=== PATIENT | female | born 1980 | race Caucasian/White ===

== ENCOUNTER 2016-12-11 15:47 | Emergency (ER) | payer OTHER ==
[~2016-12-11] VITALS: Ht 172.7 cm; Wt 79.4 kg
[~2016-12-11 15:47] MED LIST: AMOXICILLIN500 M3 PO; AMOXIL500 MG PO; BACTRIM DS 8001 TAB PO; BACTRIM DS TAB1 EACH PO; CIPRO500 M1 PO; FLEXERIL10 MG PO; K-DUR 20MEQ TA20 MEQ PO; LEVOXYL75 MCG PO; LINZESS145 MCG PO; NORCO 325 MG-51 TAB PO; NORCO 5-325 TA1 EACH PO; OMEPRAZOLE40 MG PO; OXYCODONE5 MG PO; PEPCID20 M1 PO; PERCOCET 10-321 EACH PO; PERCOCET 325 MG1 TA2 PO; PERCOCET 5-3251 EACH PO; PREMARIN 1.251.25 MG PO; PREMARIN0.3 M1 PO; QUETIAPINE FUM200 M1 PO; ROXICODONE30 MG PO; SOMA 350MG TAB350 MG PO; TRAMADOL50 MG PO; VITAMIN D2000 UNIT PO; XANAX2 M1 PO; ZOFRAN ODT4 M1 PO; ZOFRAN ODT4 M1 SL; ZOFRAN4 M2 PO
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
[2016-12-11 16:57] LABS: ABSOLUTE BASOPHIL COUNT 0.1 /CUMM (0.0-0.2); ABSOLUTE EOSINOPHIL COUNT 0.1 /CUMM (0.0-0.7); ABSOLUTE GRANULOCYTE CT 6.2 /CUMM (1.4-6.5); ABSOLUTE LYMPH COUNT 4.1 /CUMM (1.2-3.4); ABSOLUTE MONOCYTE COUNT 0.6 /CUMM (0.10-0.60); BASOPHIL % 0.9 % (0.0-2.0); EOSINOPHIL % 0.9 % (0-5); HEMATOCRIT 45.4 % (37-47); MEAN CORPUSCULAR HGB 30.5 PG (27.0-31.0); MEAN CORPUSCULAR HGB CONC 33.5 G/DL (33.0-37.0); MEAN PLATELET VOLUME 8.6 FL (7.4-10.4); PLATELET COUNT 345 /CUMM (130-400); RBC DISTRIBUTION WIDTH 13.2 % (11.5-14.5); RED BLOOD CELL CT 4.99 /CUMM (4.20-5.40)
[2016-12-11] MEDS ORDERED: PERCOCET 5-3251 EACH PO (17:08)
[2016-12-11 17:12] VITALS: BP 124/74
--- NOTE | 2016-12-11 17:28 | RADIOLOGY REPORT ---
EXAMINATION: XR CHEST CLINICAL INFORMATION: Chest pain. COMPARISON: Chest x-ray 06/20/2016 TECHNIQUE: PA and lateral views of the chest were obtained. FINDINGS: No significant abnormality is noted involving the heart, lungs, mediastinum, bony thorax, or soft tissues. IMPRESSION: No acute abnormality of the chest.
== END 2016-12-11 17:13 ==
LOC: ERH 15:47
PROVIDERS: Physician Assistant
DX: R07.9 Chest pain, unspecified (principal)
CPT/HCPCS: 93005; 93010; G0480

== ENCOUNTER 2016-12-14 11:20 | Emergency (ER) | payer OTHER ==
[~2016-12-14] VITALS: Ht 170.2 cm; Wt 77.1 kg
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
--- NOTE | 2016-12-14 13:55 | RADIOLOGY REPORT ---
EXAMINATION: XR CHEST CLINICAL INFORMATION: Chest pain COMPARISON: Chest x-rays most recent prior 12/13/2016 TECHNIQUE: PA and lateral views of the chest were obtained. FINDINGS: Cardiomediastinal silhouette is within normal limits. Linear. Bony thorax is intact. IMPRESSION: No acute pulmonary disease.
[2016-12-14 14:00] VITALS: BP 122/70
[2016-12-14] MEDS ORDERED: PERCOCET 5-3251 EACH PO (14:21)
== END 2016-12-14 14:25 ==
LOC: ERH 11:20
DX: R07.89 Other chest pain (principal)
CPT/HCPCS: 93005; 93010

== ENCOUNTER 2017-01-15 15:40 | Emergency (ER) | payer OTHER ==
[~2017-01-15] VITALS: Ht 167.6 cm; Wt 78.0 kg
[2017-01-15 15:55] VITALS: BP 138/92
[2017-01-15] MEDS ORDERED: ALPRAZOLAM2 M2 PO (18:27)
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
[2017-01-15] MEDS ORDERED: SOMA250 M1 PO (18:39)
== END 2017-01-15 19:18 ==
LOC: ERH 15:40
DX: T22.112A Burn of first degree of left forearm, initial encounter (principal); G43.909 Migraine, unspecified, not intractable, without status migrainosus; X15.0XXA Contact with hot stove (kitchen), initial encounter
CPT/HCPCS: 96372

== ENCOUNTER 2017-01-29 09:58 | Emergency (ER) | payer OTHER ==
[~2017-01-29] VITALS: Ht 167.6 cm; Wt 78.0 kg
[~2017-01-29 09:58] MED LIST changes: +ALPRAZOLAM2 M2 PO; +SOMA250 M1 PO
[2017-01-29 10:04] VITALS: BP 115/71
--- NOTE | 2017-01-29 11:20 | ED ANKLE/FOOT INJURY COMPLAINT ---
History of Present Illness General Chief Complaint: Foot or Ankle Injury Stated Complaint: BIBA RIGHT FOOT PAIN Source: patient, old records Exam Limitations: no limitations Vital Signs & Intake/Output Vital Signs & Intake/Output Vital Signs Date Time Temp Pulse Resp B/P Pulse O2 O2 Flow FiO2 Ox Delivery Rate 01/29 1004 98.5 101 18 115/71 99 Room Air Allergies Coded Allergies: NSAIDS (Non-Steroidal Anti-Inflamma (HIVES 01/15/17) aspirin (HIVES 01/15/17) erythromycin base (HIVES 01/15/17) metoclopramide (HEADACHES 01/15/17) mirtazapine (From REMERON) (HEADACHES 01/15/17) paroxetine (HIVES 01/15/17) sertraline (HIVES 01/15/17) sumatriptan (From IMITREX) (ITCHY AND FOGGY 01/15/17) venom-honey bee (BEE VENOM (HONEY BEE)) (ANAPHYLAXIS 01/15/17) cyclobenzaprine (From FLEXERIL) (GROGGY 01/15/17) divalproex sodium (PERSONALITY CHANGE 01/15/17) gabapentin ("DOESN'T WORK" 01/15/17) Reconcile Medications Alprazolam 2 MG TABLET 1 TAB PO 4 TIMES/DAY PRN ANXIETY (Reported) Amoxicillin 500 MG TABLET 1 TAB PO TID celluitis Carisoprodol (SOMA) 250 MG TABLET 1 TAB PO BID PRN Cholecalciferol (Vitamin D3) (Vitamin D) (Unknown Strength) CAPSULE (Unknown Dose) PO DAILY SUPPLEMENT (Reported) Estrogens, Conjugated (Premarin) 0.3 MG TABLET 0.3 MG PO DAILY HYSTERECTOMY ( Reported) Levothyroxine Sodium (Levoxyl) 75 MCG TABLET 1 TAB PO DAILY THYROID (Reported ) Oxycodone HCl/Acetaminophen (Percocet 5-325 MG Tablet) 5 MG-325 MG TABLET 1 TAB PO BID PRN pain Quetiapine Fumarate 200 MG TABLET 2 TAB PO QPM MENTAL HEALTH/SLEEP (Reported) Sulfamethoxazole/Trimethoprim (Bactrim Ds Tablet) 800 MG-160 MG TABLET 1 TAB PO BID cellulitis Triage Note: 37 Y/O FEMALE BIBKiah (TO TRIAGE) C/O PAIN/SWELLING AND BLISTERS TO R FOOT X 3 DAYS. STATES SHE TOOK TYLENOL WITH NO RELIEF. SMALL BLISTER NOTED TO OUTER ASPECT OF FOOT. AFEBRILE. Triage Nurses Notes Reviewed? yes Duration: day(s): (3), constant Timing: recent history Severity: moderate Severity Numbers: 5 Pain/Injury Location: Right: Foot. Method of Injury: unknown No Modifying Factors: none Associated Symptoms: swelling, redness : No Patient currently breastfeeds: No HPI: 37-year-old female presents to the emergency room for evaluation complaining of mild to moderate aching constant pain sudden onset that she's had for the past 3 days associated with swelling to her foot and redness to her foot. She denies any known injury or trauma however states that she first noticed 2 small blisters to the medial aspect of her foot. She states the larger blister popped yesterday and since then she has had the swelling and redness near the site of the popped blister. She denies any fevers or chills. She states she has a history of similar presentation to her right hand several months ago that was treated successfully with antibiotics. No chest pain shortness of breath she denies any swelling to the rest her leg, no calf pain there are no modifying factors or associated symptoms otherwise pain is nonradiating she took Tylenol without improvement (LISSY IVERSON) Past History Travel History Traveled to [place] past 21 day No Medical History Any Pertinent Medical History? 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 No (LISSY IVERSON) Review of Systems Review of Systems Constitutional: Reports: see HPI. All Other Systems: Reviewed and Negative Comments Review of systems: See HPI, All other systems negative. Constitutional, no chills no fever, no malaise HEENT: No visual changes no sore throat no congestion, no ear pain Cardiovascular: No chest pain , no palpitation , Skin, see HPI Respiratory: No dyspnea no cough no sputum GI: No nausea no vomiting, no diarrhea, no bloating/constipation : No dysuria No hematuria, Muscle skeletal: No joint pain, no joint swelling, no back pain, no neck pain, Neurologic: No numbness no headache Psych: No stress Heme/endocrine: No bruising no bleeding Immunology: No lymphadenopathy (LISSY IVERSON) Physical Exam Physical Exam General Appearance: well developed/nourished, no apparent distress, alert, awake , comfortable Leg/Knee/Thigh Left: normal range of motion, normal inspection Comments: Well-developed well-nourished patient in no apparent distress. HEENT: Atraumatic, extraocular motion intact Neck: Supple, FROM, no lymphadenopathy Back: FROM, Nontender Cardiovascular: Regular rate and rhythms no murmurs rubs or gallops, Respiratory: Chest nontender.There were no bony deformities, no asymmetry. No respiratory distress. Patient speaking in full complete sentences. Breath sounds clear to auscultation bilaterally: NO W/R/R Hip/Pelvis: Atraumatic/Stable. FROM. Knee: Atraumatic/stable. FROM. No joint swelling, no effusion. No laxity. No pain with ROM Leg: Atraumatic. Nontender. No edema, 5 out of 5 strength in the lower extremity, normal dorsiflexion of great toe bilaterally, gross sensation is intact, . Ankle/Foot: There is a 2 x 1 cm superficial skin abrasion noted to the medial aspect of the right first metatarsal, and a small 1 x 1 cm blister still intact, there is +1+ edema to the right dorsal foot the plantar surface is atraumatic nontender full sensation noted distal toes, mild erythema and streaking at the site of the blisters rest the foot is atraumatic nontender, the ankle is nontender with FROM. No swelling to the ankle, no laxity on exam Pulses: Normal/equal DP/PT pulses bilaterally. Brisk cap refill Upper Extremities: full range of motion Neuro: Alert and oriented x3 Skin: Warm & dry;No appreciable rash on exposed skin Psych: Mood affect normal, normal memory normal judgment. (LISSY IVERSON) Progress Differential Diagnosis: fracture, dislocation, sprain, contusion, cellulitis abscess Plan of Care: Discussed with patient plan of care prescription for antibiotics pain medicine was called into her pharmacy, she is ambulatory with steady gait advised to keep foot elevated the rest of the leg is atraumatic nontender with no swelling I do not believe she requires a ultrasound or blood work at this time as she is afebrile nontoxic appearing answered all her questions she feels comfortable this plan (LISSY IVERSON) Departure Departure Time of Disposition: 1130 Disposition: HOME OR SELF CARE Condition: Stable Clinical Impression Primary Impression: Cellulitis Referrals: PATIENT HAS NO PRIMARY CARE DR (PCP/Family) Additional Instructions: amoxicillin and bactrim as directed, percocet for breakthrough pain- this will make you drowsy, no driving or drinking alcohol while taking. follow up with your pmd on wednesday these prescriptions were sent to your [place] [facility] Departure Forms: Customer Survey General Discharge Information Prescriptions: Current Visit Scripts Amoxicillin 1 TAB PO TID #21 TAB Sulfamethoxazole/Trimethoprim (Bactrim Ds Tablet) 1 TAB PO BID #14 TAB Oxycodone HCl/Acetaminophen (Percocet 5-325 MG Tablet) 1 TAB PO BID PRN pain #10 TAB (LISSY IVERSON) PA/PEGGER DOBBY LOOMS Co-Sign Statement Statement: ED Attending supervision documentation- [] I saw and evaluated the patient. I have also reviewed all the pertinent lab results and diagnostic results. I agree with the findings and the plan of care as documented in the PA's/PEGGER DOBBY LOOMS's documentation. [X] I have reviewed the ED Record and agree with the PA's/PEGGER DOBBY LOOMS's documentation. [] Additions or exceptions (if any) to the PAs/PEGGER DOBBY LOOMS's note and plan are summarized below: [] (FARIDEH DELGADO,SHELBI)
[2017-01-29] MEDS ORDERED: BACTRIM DS TAB1 EACH PO (11:34)
[2017-01-29] MEDS ORDERED: PERCOCET 5-3251 EACH PO (11:34)
[2017-01-29] MEDS ORDERED: AMOXICILLIN500 M3 PO (11:34)
== END 2017-01-29 11:31 ==
LOC: ERH 09:58
DX: L03.115 Cellulitis of right lower limb (principal)

== ENCOUNTER 2017-04-04 09:28 | Emergency (ER) | payer OTHER ==
[2017-04-04 10:50] LABS: ABSOLUTE BASOPHIL COUNT 0 /CUMM (0.0-0.2); ABSOLUTE EOSINOPHIL COUNT 0.1 /CUMM (0.0-0.7); ABSOLUTE GRANULOCYTE CT 3.2 /CUMM (1.4-6.5); ABSOLUTE LYMPH COUNT 2.8 /CUMM (1.2-3.4); ABSOLUTE MONOCYTE COUNT 0.2 /CUMM (0.10-0.60); BASOPHIL % 0.7 % (0.0-2.0); EOSINOPHIL % 1.8 % (0-5); GRANULOCYTE % 49.6 % (42.2-75.2); HEMATOCRIT 43.2 % (37-47); MEAN CORPUSCULAR HGB 30.1 PG (27.0-31.0); MEAN CORPUSCULAR HGB CONC 33.1 G/DL (33.0-37.0); MEAN CORPUSCULAR VOLUME 91.2 FL (81.0-99.0); MEAN PLATELET VOLUME 9.1 FL (7.4-10.4); PLATELET COUNT 311 /CUMM (130-400); RBC DISTRIBUTION WIDTH 13.1 % (11.5-14.5); RED BLOOD CELL CT 4.74 /CUMM (4.20-5.40); WHITE BLOOD CELL COUNT 6.4 /CUMM (4.8-10.8)
--- NOTE | 2017-04-04 13:05 | CT SCAN REPORT ---
EXAMINATION: CT ABDOMEN AND PELVIS WITH CONTRAST CLINICAL INFORMATION: Abdominal pain. Nausea, vomiting and diarrhea. COMPARISON: CT scan of the lumbar spine dated 09/24/2016. CT scan of the abdomen and pelvis dated 05/22/2016, 05/06/2016, and 10/06/2008. TECHNIQUE: Multidetector CT volumetric acquisition of the abdomen and pelvis was performed after the administration of 95 mL of intravenous Optiray 320. The data set was reformatted in the sagittal and coronal planes and reviewed on an independent workstation. DLP: 347.64 mGy-cm. FINDINGS: LOWER CHEST: Scattered areas of subsegmental atelectasis seen in the lung bases bilaterally. LIVER, GALLBLADDER, BILIARY TREE: Liver normal size and attenuation. No focal cystic or solid mass. Hepatic and portal veins patent. The patient is status post cholecystectomy. There is now intra and extrahepatic ductal dilatation seen with the distal common bile duct measuring up to 1.4 cm in diameter. No obstructing stone or mass is seen. While findings may be related to progressive dilatation of the biliary tree status post cholecystectomy, subtle stricture in the distal common bile duct cannot be entirely excluded. PANCREAS: Normal. No significant ductal dilatation, mass, or surrounding stranding. SPLEEN: Normal size and appearance. Splenic vein patent. ADRENAL GLANDS AND KIDNEYS: Adrenal glands normal. Kidneys bilaterally symmetric in size and function. No focal mass, hydronephrosis, nephrolithiasis or perinephric stranding. URETERS AND BLADDER: Ureters decompressed and within normal limits. Bladder partially distended and within normal limits. PELVIC ORGANS: The patient is status post hysterectomy and presumably oophorectomy. No suspicious adnexal mass seen. GASTROINTESTINAL TRACT: Normal. Small and large bowel loops decompressed. Appendix in right lower quadrant normal. LYMPHOVASCULAR STRUCTURES: Abdominal aorta normal in caliber. No periaortic collections. No abdominal or pelvic adenopathy or free fluid collection. BONES: Unremarkable. IMPRESSION: 1. Prominent intra and extrahepatic ductal dilatation is seen. While this may in part be related to the patient's postcholecystectomy state, finding is new from the previous CT scan and seems a little out of proportion to the postcholecystectomy state. No definite obstructing stone or mass is visualized. However, a noncalcified stone or subtle stricture of the distal CBD near the ampullary region cannot be excluded. Close clinical correlation is requested. 2. Small and large bowel loops are decompressed and unremarkable. No evidence of bowel obstruction, perforation or abnormal bowel wall thickening. 3. Appendix normal.
[2017-04-04] MEDS ORDERED: ZOFRAN ODT4 M1 SL ×2 (13:55→14:34)
--- NOTE | 2017-04-04 14:04 | ED GENERAL ADULT ---
History of Present Illness General Chief Complaint: Abdominal Pain/Flank Pain Stated Complaint: BIBA ABD PAIN Source: patient Exam Limitations: no limitations Vital Signs & Intake/Output Vital Signs & Intake/Output Vital Signs Date Time Temp Pulse Resp B/P B/P Pulse O2 O2 Flow FiO2 Mean Ox Delivery Rate 04/04 1426 98.5 53 20 110/78 99 Room Air 04/04 1114 98.2 52 20 113/71 100 Room Air 04/04 0931 97.5 57 18 104/75 96 Room Air Allergies Coded Allergies: NSAIDS (Non-Steroidal Anti-Inflamma (HIVES 01/15/17) aspirin (HIVES 01/15/17) erythromycin base (HIVES 01/15/17) metoclopramide (HEADACHES 01/15/17) mirtazapine (From REMERON) (HEADACHES 01/15/17) paroxetine (HIVES 01/15/17) sertraline (HIVES 01/15/17) sumatriptan (From IMITREX) (ITCHY AND FOGGY 01/15/17) venom-honey bee (BEE VENOM (HONEY BEE)) (ANAPHYLAXIS 01/15/17) cyclobenzaprine (From FLEXERIL) (GROGGY 01/15/17) divalproex sodium (PERSONALITY CHANGE 01/15/17) gabapentin ("DOESN'T WORK" 01/15/17) Reconcile Medications Alprazolam 2 MG TABLET 1 TAB PO 4 TIMES/DAY PRN ANXIETY (Reported) Amoxicillin 500 MG TABLET 1 TAB PO TID celluitis Carisoprodol (SOMA) 250 MG TABLET 1 TAB PO BID PRN Cholecalciferol (Vitamin D3) (Vitamin D) (Unknown Strength) CAPSULE (Unknown Dose) PO DAILY SUPPLEMENT (Reported) Estrogens, Conjugated (Premarin) 0.3 MG TABLET 0.3 MG PO DAILY HYSTERECTOMY ( Reported) Levothyroxine Sodium (Levoxyl) 75 MCG TABLET 1 TAB PO DAILY THYROID (Reported ) Ondansetron (Zofran Odt) 4 MG TAB.RAPDIS 1 TAB SL TID PRN VOMITING Oxycodone HCl/Acetaminophen (Percocet 5-325 MG Tablet) 5 MG-325 MG TABLET 1 TAB PO BID PRN pain Quetiapine Fumarate 200 MG TABLET 2 TAB PO QPM MENTAL HEALTH/SLEEP (Reported) Sulfamethoxazole/Trimethoprim (Bactrim Ds Tablet) 800 MG-160 MG TABLET 1 TAB PO BID cellulitis Triage Note: PT BIBA FROM HOME WITH ABD PAIN SINCE LAST NIGHT. STATES SHE WOKE UP AROUND MIDNIGHT AND HAS BEEN HAVING VOMITING PERIODICALLY WITH SOME DIARRHEA WELL. PT POINTS TO HER GROIN TO WHERE THE PAIN IS. REPORTS BURNING WITH URINATION. Triage Nurses Notes Reviewed? yes Onset: This morning Duration: hour(s): : No Patient currently breastfeeds: No HPI: 37-year-old female with a past medical history of hypothyroid, cholecystitis status post cholecystectomy, anxiety, depression, endometriosis status post hysterectomy presenting with acute onset of lower abdominal pain with nausea, vomiting, diarrhea that began around 1 AM this morning. Reports cramping pain that does not localize, will move back and forth between right lower and left lower quadrants. Admits to dysuria, no urinary frequency/urgency, no vaginal discharge or odor. Currently in a monogamous relationship with her , no history of STI's. Denies fevers, foods, sick contacts. (ZHAO FRAZIER PA-C) Past History Travel History Traveled to [place] past 21 day No Medical History Any Pertinent Medical History? 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 No (ZHAO FRAZIER PA-C) Review of Systems Review of Systems Constitutional: Reports: no symptoms. Denies: chills, fever, malaise, weakness. Respiratory: Reports: no symptoms. Cardiovascular: Reports: no symptoms. GI: Reports: abdominal pain, diarrhea, nausea, vomiting. Denies: constipation, distention, melena, bloody stool. Genitourinary: Reports: dysuria. Denies: discharge, hematuria, urgency. (ZHAO FRAZIER PA-C) Physical Exam Physical Exam General Appearance: well developed/nourished, no apparent distress, anxious Head: atraumatic Respiratory: normal breath sounds, lungs clear Cardiovascular: regular rate/rhythm Gastrointestinal: soft, tenderness, Abd soft, ND, +TTP in RLQ/LLQ, no rebound or guarding, hyperactive BS. No CVAT. Core Measures ACS in differential dx? No CVA/TIA Diagnosis: No Severe Sepsis Present: No Septic Shock Present: No (FREDDIE BROOKE,ZHAO) Progress Differential Diagnoses I considered the following diagnoses in my evaluation of the patient: [UTI versus pyelonephritis versus STI versus PID versus gastroenteritis versus food poisoning versus diverticulitis versus appendicitis.] Plan of Care: Orders Procedure Date/time Status Regular Diet 04/04 D Active EKG 04/04 1406 Active CULTURE,URINE 04/04 1012 Active URINE 04/04 1012 Complete URINALYSIS 04/04 1012 Complete LIPASE 04/04 1012 Complete COMPREHENSIVE METABOLIC PANEL 04/04 1012 Complete CBC WITHOUT DIFFERENTIAL 04/04 1012 Complete Laboratory Tests 04/04/17 1043: Anion Gap 10, Estimated GFR > 60, BUN/Creatinine Ratio 25.7 H, Glucose 78, Calcium 9.5, Total Bilirubin 0.5, AST 23, ALT 35, Alkaline Phosphatase 48, Total Protein 7.6, Albumin 4.4, Globulin 3.2, Albumin/Globulin Ratio 1.4, Lipase 81, CBC w Diff NO MAN DIFF REQ, RBC 4.74, MCV 91.2, MCH 30.1, RDW 13.1, MPV 9.1, Gran % 49.6, Lymphocytes % 44.1, Monocytes % 3.8, Eosinophils % 1.8, Basophils % 0.7, Absolute Granulocytes 3.2, Absolute Lymphocytes 2.8, Absolute Monocytes 0.2 , Absolute Eosinophils 0.1, Absolute Basophils 0, PUBS MCHC 33.1 04/04/17 1015: Urinalysis LIGHT H, Urine Color YEL, Urine Clarity HAZY H, Urine pH 6.5, Ur Specific [place] 1.010, Urine Protein NEG, Urine Ketones NEG, Urine Nitrite NEG, Urine Bilirubin NEG, Urine Urobilinogen 0.2, Ur Leukocyte Esterase NEG, Ur Microscopic SEDIMENT EXAMINED, Urine RBC RARE, Urine WBC 1-3 H, Ur Epithelial Cells MANY H, Urine Bacteria MOD H, Urine Mucus RARE, Urine Hemoglobin NEG, Urine Glucose NEG, Urine Test NEGATIVE Microbiology 04/04 1015 URINE ROUT: Urine Culture - RECD CT scan of abdomen and pelvis was unremarkable. Labs remarkable for potassium of 5.4, however no EKG changes. Urine was not a clean catch and patient refusing to provide a second sample, however dirty catch urine has only 1-3 leukocytes and no nitrites, therefore concern for UTI is low. Instructed if dysuria continues she can follow-up with her PMD for repeat urine testing. Clearly with viral gastroenteritis versus food poisoning given acute onset of GI symptoms and nonfocal findings on exam. Given Rx Zofran and counseled on symptomatic care at home. Follow up with her PMD for reevaluation. (ZHAO FRAZIER PA-C) Initial ED EKG: Sinus bradycardia - no evidence of hyperkalemic changes (ZHAO FRAZIER PA-C) Departure Departure Disposition: HOME OR SELF CARE Condition: Stable Clinical Impression Primary Impression: Abdominal pain Secondary Impressions: Nausea vomiting and diarrhea Referrals: PATIENT HAS NO PRIMARY CARE DR (PCP/Family) Additional Instructions: Use one tablet Zofran every 8 hours as needed for nausea and vomiting. Do not swallow tablet allow to dissolve under your tongue. Maintain adequate fluid intake. Follow-up with her primary care provider. Return to the ED for any new or worsening symptoms. Departure Forms: Customer Survey General Discharge Information Prescriptions: Current Visit Scripts Ondansetron (Zofran Odt) 1 TAB SL TID PRN VOMITING #10 TAB (ZHAO FRAZIER PA-C) PA/WOOD CALKER Co-Sign Statement Statement: ED Attending supervision documentation- x I saw and evaluated the patient. I have also reviewed all the pertinent lab results and diagnostic results. I agree with the findings and the plan of care as documented in the PA's/WOOD CALKER's documentation. [] I have reviewed the ED Record and agree with the PA's/WOOD CALKER's documentation. [] Additions or exceptions (if any) to the PAs/WOOD CALKER's note and plan are summarized below: [] (ARLET DELGADO,YAKOV) Critical Care Note Critical Care Note Critical Care Time: non-applicable (ZHAO FRAZIER PA-C)
[2017-04-04 14:26] VITALS: BP 110/78
== END 2017-04-04 14:37 ==
LOC: ERH 09:28
PROVIDERS: Emergency Medicine
DX: R11.2 Nausea with vomiting, unspecified (principal); R19.7 Diarrhea, unspecified; R10.32 Left lower quadrant pain; R10.31 Right lower quadrant pain
CPT/HCPCS: 74177; 81001; 81025; 87086; 93005; 93010; 96374; 96375; 96376; J2405

== ENCOUNTER 2017-04-05 09:51 | Emergency (ER) | payer OTHER ==
[~2017-04-05] VITALS: Ht 167.6 cm; Wt 79.4 kg
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
[2017-04-05 10:54] LABS: ABSOLUTE BASOPHIL COUNT 0 /CUMM (0.0-0.2); ABSOLUTE EOSINOPHIL COUNT 0.2 /CUMM (0.0-0.7); ABSOLUTE GRANULOCYTE CT 4.3 /CUMM (1.4-6.5); ABSOLUTE LYMPH COUNT 2.3 /CUMM (1.2-3.4); ABSOLUTE MONOCYTE COUNT 0.3 /CUMM (0.10-0.60); BASOPHIL % 0.3 % (0.0-2.0); EOSINOPHIL % 2.3 % (0-5); GRANULOCYTE % 60.4 % (42.2-75.2); MEAN CORPUSCULAR HGB 30.7 PG (27.0-31.0); MEAN CORPUSCULAR HGB CONC 34.5 G/DL (33.0-37.0); MEAN CORPUSCULAR VOLUME 88.9 FL (81.0-99.0); MEAN PLATELET VOLUME 9.3 FL (7.4-10.4); PLATELET COUNT 284 /CUMM (130-400); RBC DISTRIBUTION WIDTH 13.2 % (11.5-14.5); RED BLOOD CELL CT 4.72 /CUMM (4.20-5.40); WHITE BLOOD CELL COUNT 7.1 /CUMM (4.8-10.8)
[2017-04-05 12:08] VITALS: BP 116/70
== END 2017-04-05 12:08 ==
LOC: ERH 09:51
PROVIDERS: Emergency Medicine
DX: K52.9 Noninfective gastroenteritis and colitis, unspecified (principal)
CPT/HCPCS: 80307; 96361; 96372; 96374; 96375; J0131; J0500; J2550

== ENCOUNTER 2017-06-27 12:50 | Emergency (ER) | payer OTHER ==
[~2017-06-27] VITALS: Ht 177.8 cm; Wt 83.9 kg
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
[2017-06-27 13:34] LABS: ABSOLUTE BASOPHIL COUNT 0 /CUMM (0.0-0.2); ABSOLUTE EOSINOPHIL COUNT 0.1 /CUMM (0.0-0.7); ABSOLUTE GRANULOCYTE CT 3.1 /CUMM (1.4-6.5); ABSOLUTE LYMPH COUNT 2.3 /CUMM (1.2-3.4); ABSOLUTE MONOCYTE COUNT 0.2 /CUMM (0.10-0.60); BASOPHIL % 0.5 % (0.0-2.0); EOSINOPHIL % 1.1 % (0-5); GRANULOCYTE % 54.5 % (42.2-75.2); HEMATOCRIT 42.7 % (37-47); MEAN CORPUSCULAR HGB CONC 32.6 G/DL (33.0-37.0); MEAN CORPUSCULAR VOLUME 92.1 FL (81.0-99.0); MEAN PLATELET VOLUME 9.3 FL (7.4-10.4); PLATELET COUNT 280 /CUMM (130-400); RBC DISTRIBUTION WIDTH 12.9 % (11.5-14.5); RED BLOOD CELL CT 4.63 /CUMM (4.20-5.40); WHITE BLOOD CELL COUNT 5.8 /CUMM (4.8-10.8)
[2017-06-27 13:43] LABS: PT 11.3 SEC (9.4-12.5); PTT 31 SEC (25-37)
--- NOTE | 2017-06-27 14:43 | RADIOLOGY REPORT ---
EXAMINATION: XR CHEST CLINICAL INFORMATION: Chest pain. Shortness of breath. Evaluate for pneumonia. COMPARISON: Chest x-ray dated 12/14/2016 and 12/11/2016. TECHNIQUE: AP semierect and lateral views of the chest were obtained. FINDINGS: The cardiomediastinal silhouette is within normal limits in size. Lungs bilaterally are hypoinflated with crowding of bronchovascular lung markings in the lung bases bilaterally, right greater than left. Thickening of the central airways is seen. No focal consolidation, effusion or pneumothorax is seen. Bony structures are unremarkable. IMPRESSION: 1. Low lung volumes are seen. Diffuse thickening of the small airways is seen, possibly due to reactive airways disease or bronchitis. Close clinical correlation requested. 2. No pneumonia.
[2017-06-27] MEDS ORDERED: VICODIN 5-3001 EACH PO ×2 (15:19→15:22)
[2017-06-27 15:23] VITALS: BP 139/79
== END 2017-06-27 15:25 ==
LOC: ERH 12:50
PROVIDERS: Emergency Medicine
DX: R07.9 Chest pain, unspecified (principal)
CPT/HCPCS: 93005; 93010; 96374; J0131

== ENCOUNTER 2017-12-23 18:08 | Emergency (ER) | payer OTHER ==
[~2017-12-23] VITALS: Ht 168.9 cm; Wt 80.7 kg
[~2017-12-23 18:08] MED LIST changes: +CHLORDIAZEPOXID25 M3 PO; +CLONIDINE HCL0.2 M1 PO; +DEXTROAMP-AMPHE30 MG PO; +HYDROXYZINE HCL25 M2 PO; +HYDROXYZINE HCL50 M1 PO; +VICODIN 5-3001 EACH PO; +XANAX XR2 M1 PO
[2017-12-23 18:15] VITALS: BP 119/78
--- NOTE | 2017-12-23 20:49 | ED UPPER/LOWER EXTREMITY COMPL ---
History of Present Illness General Chief Complaint: Lower Extremity Problems Stated Complaint: BIBA WITH RT KNEE PAIN Source: patient, old records, EMS Exam Limitations: no limitations Vital Signs & Intake/Output Vital Signs & Intake/Output Vital Signs Date Time Temp Pulse Resp B/P B/P Pulse O2 O2 Flow FiO2 Mean Ox Delivery Rate 12/23 1815 96.9 67 18 119/78 97 Room Air Room Air Allergies Coded Allergies: tramadol (From ULTRAM) (Intermediate, "HIVES AND CONVULSIONS" 12/23/17) "HIVES AND CONVULSIONS" NSAIDS (Non-Steroidal Anti-Inflamma (HIVES 09/06/17) aspirin (HIVES 09/06/17) erythromycin base (HIVES 09/06/17) metoclopramide (HEADACHES 09/06/17) mirtazapine (From REMERON) (HEADACHES 09/06/17) paroxetine (HIVES 09/06/17) sertraline (HIVES 09/06/17) sumatriptan (From IMITREX) (ITCHY AND FOGGY 09/06/17) venom-honey bee (BEE VENOM (HONEY BEE)) (ANAPHYLAXIS 09/06/17) cyclobenzaprine (From FLEXERIL) (GROGGY 09/06/17) divalproex sodium (PERSONALITY CHANGE 09/06/17) gabapentin ("DOESN'T WORK" 09/06/17) Reconcile Medications Alprazolam (Xanax XR) 2 MG TAB.ER.24H 1 TAB PO FOUR TIMES A DAY PRN anxiety Carisoprodol (SOMA) 250 MG TABLET 1 TAB PO BID pain Chlordiazepoxide HCl 25 MG CAPSULE 0 PO SEE ADMIN CRITERIA PRN anxiety 1-2 tabs TID x 2 days 1-2 tabs BID x 2 days 1-2 tabs QD x 2 days Cholecalciferol (Vitamin D3) (Vitamin D) (Unknown Strength) CAPSULE (Unknown Dose) PO DAILY SUPPLEMENT (Reported) Dextroamphetamine/Amphetamine (Dextroamp-Amphetamin 30 MG Tab) 30 MG TABLET 1 TAB PO BID PRN ADD/ADHD (Reported) Estrogens, Conjugated (Premarin) 0.3 MG TABLET 0.3 MG PO DAILY HYSTERECTOMY ( Reported) Hydroxyzine Hydrochloride (Atarax) 50 MG TABLET 1 TAB PO Q6PRN PRN anxiety Levothyroxine Sodium (Levoxyl) 75 MCG TABLET 1 TAB PO DAILY AC THYROID ( Reported) Quetiapine Fumarate 200 MG TABLET 2 TAB PO QPM MENTAL HEALTH/SLEEP (Reported) Triage Note: PT TO ED WITH C/O RIGHT KNEE SWELLING SINCE THIS AM, PT DENIES FALL OR INJURY TO THE AREA, PT ALSO C/O "I HAVE BEEN HAVING A PANIC ATTACK THAT JUST ISN'T GOING AWAY". Triage Nurses Notes Reviewed? yes Onset: Morning Duration: hour(s):, constant, continues in ED Timing: recent history Severity: moderate, severe Pain/Injury Location: Right: Knee. Method of Injury: direct blow, fall Modifying Factors: Improves With: immobilization, rest. Worsens With: movement. Associated Symptoms: swelling, GCS 15 since, stiffness LMP (ages 10-50): unknown : No Patient currently breastfeeds: No HPI: 3 days prior to admission patient recalls losing her balance and falling onto both knees. 1 day prior to admission she woke with right knee pain and swelling severe nonradiating worse with weightbearing and movement. She denies other injury fever chills nausea vomiting diarrhea abdominal pain chest pain shortness breath headache dysuria rash bleeding. Past History Travel History Traveled to [place] past 21 day No Medical History Any Pertinent Medical History? 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 No Review of Systems Review of Systems Constitutional: Reports: no symptoms. EENTM: Reports: no symptoms. Respiratory: Reports: no symptoms. Cardiovascular: Reports: no symptoms. Gastrointestinal/Abdominal: Reports: no symptoms. Genitourinary: Reports: no symptoms. Musculoskeletal: Reports: see HPI, joint pain, joint swelling. Skin: Reports: no symptoms. Neurological/Psychological: Reports: no symptoms. Hematologic/Endocrine: Reports: no symptoms. Immunological: Reports: no symptoms. All Other Systems: Reviewed and Negative Physical Exam Physical Exam General Appearance: well developed/nourished, alert, awake, anxious, moderate distress, obese Head: atraumatic, normal appearance Eyes: Bilateral: normal appearance, PERRL, EOMI. Ears, Nose, Throat: normal pharynx, normal ENT inspection, hearing grossly normal Neck: normal inspection, supple, full range of motion, no midline tenderness Cardiovascular/Respiratory: normal breath sounds, normal peripheral pulses, regular rate/rhythm, no respiratory distress Peripheral Pulses: 4+ carotid (R), 4+ carotid (L) Back: normal inspection, normal range of motion, no vertebral tenderness Shoulder Left: normal range of motion, normal inspection Shoulder Right: normal range of motion, normal inspection Elbow Left: normal range of motion, normal inspection Elbow Right: normal range of motion, normal inspection Hand Left: normal inspection, normal range of motion Hand Right: normal inspection, normal range of motion Upper Extremity Reflexes: 2+: bicep (R), bicep (L). Leg Left: normal range of motion, normal inspection Leg Right: normal range of motion, normal inspection Hip Left: normal range of motion, normal inspection Hip Right: normal range of motion, normal inspection Knee Left: normal range of motion, normal inspection Knee Right: normal inspection, soft tissue tenderness, limited range of motion Knee Ligaments Right: pain anterior drawer, pain posterior drawer, pain medial stress, pain lateral stress Foot Left: normal inspection, normal range of motion Foot Right: normal inspection, normal range of motion Lower Extremity Reflexes: 2+: ankle (R), ankle (L). Neurologic/Tendon: normal sensation, normal motor functions, normal tendon functions Skin: intact, normal color, warm/dry Lymphatic: no anterior cervical maranda Progress Differential Diagnosis: contusion, fracture, sprain Plan of Care: Orders Procedure Date/time Status XRY-KNEE COMPLETE RIGHT 12/23 2040 Active Current Medications Sig/Larry Start time Last Medication Dose Stop Time Status Admin Alprazolam 1 MG ONCE ONE 12/23 2099 UNVr (Xanax) 12/23 2100 Tramadol HCl 50 MG ONCE ONE 12/23 2099 UNVr (Ultram) 12/23 2100 Diagnostic Imaging: Viewed by Me: Radiology Read. Discussed w/RAD: Radiology Read. Radiology Impression: no acute abnormality, no fracture, no dislocation, no foreign body seen Comments: Patient reports allergy to Tramadol. After discussion of no narcotic pain medication she discloses she has run out of her Xanax with refill on Wednesday. Departure Departure Time of Disposition: 2135 Disposition: HOME OR SELF CARE Condition: Stable Clinical Impression Primary Impression: Contusion of knee, right Qualifiers: Encounter type: initial encounter Qualified Code: S80.01XA - Contusion of right knee, initial encounter Secondary Impressions: Panic disorder Referrals: Katelin Washington APRN (PCP/Family) Departure Forms: General Discharge Information Prescriptions: Current Visit Scripts Alprazolam (Xanax) 1 TAB PO Q6P PRN anxiety #4 TAB
--- NOTE | 2017-12-23 21:34 | RADIOLOGY REPORT ---
EXAMINATION: XR KNEE, RIGHT CLINICAL INFORMATION: Fall onto knees with continued right knee pain COMPARISON: 09/06/2017 TECHNIQUE: Four views of the right knee. FINDINGS: Bones and soft tissues are normal. No fracture or joint effusion. Alignment is anatomic. Joint spaces are well maintained. No abnormal soft tissue calcification. IMPRESSION: No acute osseous abnormality of the right knee. No significant change from prior study.
[2017-12-23] MEDS ORDERED: XANAX2 M1 PO (21:48)
[2017-12-23] MEDS ORDERED: SOMA250 M1 PO (21:57)
== END 2017-12-23 21:59 ==
LOC: ERH 18:08
DX: S80.01XA Contusion of right knee, initial encounter (principal); F41.0 Panic disorder [episodic paroxysmal anxiety]; W19.XXXA Unspecified fall, initial encounter; Y92.9 Unspecified place or not applicable; Y93.9 Activity, unspecified
CPT/HCPCS: 73562-RT

== ENCOUNTER 2018-02-21 11:52 | Emergency (ER) | payer OTHER ==
[~2018-02-21 11:52] MED LIST changes: +AMOXICILLIN875 M1 PO; +AVELOX400 M1 PO; +PREDNISONE50 M1 PO; +PROAIR HFA8.5 GM INH
--- NOTE | 2018-02-21 12:26 | ED DYSPNEA/ASTHMA COMPLAINT ---
History of Present Illness General Chief Complaint: General Adult Stated Complaint: PNA Source: patient Exam Limitations: no limitations Vital Signs & Intake/Output Vital Signs & Intake/Output Vital Signs Date Time Temp Pulse Resp B/P B/P Pulse O2 O2 Flow FiO2 Mean Ox Delivery Rate 02/21 1538 98.0 52 16 118/72 90 Room Air 02/21 1304 Nasal 2.0L Cannula 02/21 1155 97.6 54 17 109/57 92 Room Air Allergies Coded Allergies: tramadol (From ULTRAM) (Intermediate, "HIVES AND CONVULSIONS" 12/23/17) "HIVES AND CONVULSIONS" NSAIDS (Non-Steroidal Anti-Inflamma (HIVES 09/06/17) aspirin (HIVES 09/06/17) erythromycin base (HIVES 09/06/17) metoclopramide (HEADACHES 09/06/17) mirtazapine (From REMERON) (HEADACHES 09/06/17) paroxetine (HIVES 09/06/17) sertraline (HIVES 09/06/17) sumatriptan (From IMITREX) (ITCHY AND FOGGY 09/06/17) venom-honey bee (BEE VENOM (HONEY BEE)) (ANAPHYLAXIS 09/06/17) cyclobenzaprine (From FLEXERIL) (GROGGY 09/06/17) divalproex sodium (PERSONALITY CHANGE 09/06/17) gabapentin ("DOESN'T WORK" 09/06/17) Reconcile Medications Alprazolam (Xanax) 2 MG TABLET 1 TAB PO Q6P PRN anxiety Carisoprodol (SOMA) 250 MG TABLET 1 TAB PO TID PRN muscle strain Cholecalciferol (Vitamin D3) (Vitamin D) 2,000 UNIT CAPSULE 1 TAB PO DAILY SUPPLEMENT (Reported) Estrogens, Conjugated (Premarin) 0.3 MG TABLET 0.3 MG PO DAILY HYSTERECTOMY ( Reported) Levothyroxine Sodium (Levoxyl) 75 MCG TABLET 1 TAB PO DAILY AC THYROID ( Reported) Quetiapine Fumarate 200 MG TABLET 3 TAB PO QPM MENTAL HEALTH/SLEEP (Reported) Triage Note: PT SEEN AND DIAGNOSED WITH PNA 2 DAYS AGO. RECOMMENDED TO STAY FOR ADMISSION BUT DECIDED TO GO HOME TO MAKE SURE HER 15 YO SON WENT TO SCHOOL. UNABLE TO FILL AMOXICILLIN SCRIPT OVER WEEKEND. ARRIVES FEELING NO BETTER, 02 SAT LOW 90S Triage Nurses Notes Reviewed? yes Onset: Abrupt Duration: day(s): HPI: 38-year-old female comes into emergency room with complaints of cough fever chills or any nose congestion. Patient has been sick for the past 6-7 days. She was seen here yesterday and diagnosed with influenza and pneumonia bilaterally. She left AGAINST MEDICAL ADVICE. She reports increased shortness of breath. She comes in for further evaluation. She did not fill her antibiotics and has not had any oral medication at home yet. She reports pain in her ribs bilaterally. She reports it feels like something is tearing. Denies any other system symptoms. Past History Medical History Any Pertinent Medical History? 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 No Review of Systems Review of Systems Constitutional: Reports: see HPI. EENTM: Reports: see HPI. Respiratory: Reports: see HPI. Cardiovascular: Reports: see HPI. GI: Reports: no symptoms. Genitourinary: Reports: no symptoms. Musculoskeletal: Reports: no symptoms. Skin: Reports: no symptoms. Neurological/Psychological: Reports: no symptoms. Hematologic/Endocrine: Reports: no symptoms. Immunologic/Allergic: Reports: no symptoms. All Other Systems: Reviewed and Negative Physical Exam Physical Exam General Appearance: well developed/nourished, mild distress Head: atraumatic Eyes: Bilateral: normal appearance. Ears, Nose, Throat: normal ENT inspection, hearing grossly normal Neck: normal inspection Respiratory: no respiratory distress, wheezing Cardiovascular: regular rate/rhythm Gastrointestinal: soft Extremities: normal inspection, no edema Neurologic/Psych: awake, alert, oriented x 3 Skin: intact, normal color Core Measures ACS in differential dx? No CVA/TIA Diagnosis No Sepsis Present: No Sepsis Focused Exam Completed? No Progress Differential Diagnosis: asthma, AMI, bronchitis, costochondritis, CHF, COPD, musculoskeletal pain, pericarditis, pulmonary embolism, pneumonia, pneumothorax, rib fracture, unstable angina Plan of Care: Orders Procedure Date/time Status Nothing by Mouth 02/22 B Active CBC WITHOUT DIFFERENTIAL 02/22 06 Active BASIC ELECTROLYTES PLUS BUN&CR 02/22 06 Active Full Liquid Diet 02/21 D Complete Misc Message 02/21 1623 Active ED Holding Orders 02/21 1623 Active Admit to inpatient 02/21 1623 Active TRC EVALUATION (GEN) 02/21 1521 Active LOWER RESPIRATORY CULTURE 02/21 1519 Active LACTIC ACID 02/21 1503 Complete Pathway - chart 02/21 1411 Active House Staff 02/21 1411 Active Patient Data 02/21 1352 Active Misc Message 02/21 1339 Active ED Holding Orders 02/21 1339 Active Admit to inpatient 02/21 1339 Active Vital Signs 02/21 1339 Active Code Status 02/21 1339 Active BLOOD CULTURE 02/21 1203 Active URINE DRUGS OF ABUSE 02/21 1203 Active TROPONIN LEVEL 02/21 1203 Complete LACTIC ACID 02/21 1203 Complete HUMAN BETA HCG SCREEN 02/21 1203 Complete COMPREHENSIVE METABOLIC PANEL 02/21 1203 Complete CBC WITHOUT DIFFERENTIAL 02/21 1203 Complete EKG 02/21 1203 Active VTE Mechanical Prophylaxis 02/21 UNK Active Current Medications Sig/Larry Start time Last Medication Dose Stop Time Status Admin Doxycycline Hyclate 100 MG ONCE ONE 02/21 1315 CAN (Vibramycin) 02/21 1420 Dextrose/Water 100 ML (D5W) Laboratory Tests 02/21/18 1522: Lactic Acid 1.1 02/21/18 1227: Anion Gap 13, Estimated GFR > 60, BUN/Creatinine Ratio 22.9, Glucose 119 H, Lactic Acid 2.2 H, Calcium 9.1, Total Bilirubin 0.4, AST 23, ALT 25, Alkaline Phosphatase 39, Troponin I < 0.01, Total Protein 6.7, Albumin 3.6, Globulin 3.1, Albumin/Globulin Ratio 1.2, Total Beta HCG NEGATIVE, CBC w Diff NO MAN DIFF REQ, RBC 3.85 L, MCV 88.8, MCH 31.1 H, MCHC 35.0, RDW 13.6, MPV 9.4, Gran % 77.5 H , Lymphocytes % 14.7 L, Monocytes % 7.1, Eosinophils % 0, Basophils % 0.7, Absolute Granulocytes 4.8, Absolute Lymphocytes 0.9 L, Absolute Monocytes 0.4, Absolute Eosinophils 0, Absolute Basophils 0 Microbiology 02/21 151 LOWER RESP: Respiratory Culture - ORD 02/21 1519 LOWER RESP: Gram Stain - ORD 02/21 1320 BLOOD: Blood Culture - RECD 02/21 1227 BLOOD: Blood Culture - RECD Initial ED EKG: normal sinus rhythm, rate (48, LEEANNE) Departure Departure Disposition: STILL A PATIENT Condition: Stable Clinical Impression Primary Impression: Bilateral pneumonia Secondary Impressions: Hypoxia, Influenza B Referrals: Katelin Washington APRN (PCP/Family) Departure Forms: Customer Survey General Discharge Information Admission Note Spoke With: Shamar Wesley MD Documentation of Exam: Documentation of any treatments & extenuating circumstances including Concerns Regarding Discharge (functional status, medication knowledge or non-compliance, living conditions, etc.) that warrant an admission rather than observation: Patient will require IV antibiotics. Supplemental oxygen. Pulmonary consultation. IV fluids. Patient's O2 saturation is 90% on room air. She feels increasingly short of breath. Medically not safe for discharge. Critical Care Note Critical Care Note Critical Care Time: non-applicable 02/21/18 1227: Anion Gap 13, Estimated GFR > 60, BUN/Creatinine Ratio 22.9, Glucose 119 H, Lactic Acid 2.2 H, Calcium 9.1, Total Bilirubin 0.4, AST 23, ALT 25, Alkaline Phosphatase 39, Troponin I < 0.01, Total Protein 6.7, Albumin 3.6, Globulin 3.1, Albumin/Globulin Ratio 1.2, Total Beta HCG NEGATIVE, CBC w Diff NO MAN DIFF REQ, RBC 3.85 L, MCV 88.8, MCH 31.1 H, MCHC 35.0, RDW 13.6, MPV 9.4, Gran % 77.5 H , Lymphocytes % 14.7 L, Monocytes % 7.1, Eosinophils % 0, Basophils % 0.7, Absolute Granulocytes 4.8, Absolute Lymphocytes 0.9 L, Absolute Monocytes 0.4, Absolute Eosinophils 0, Absolute Basophils 0 Microbiology 02/21 1519 LOWER RESP: Respiratory Culture - ORD 02/21 1519 LOWER RESP: Gram Stain - ORD 02/21 1320 BLOOD: Blood Culture - RECD 02/21 1227 BLOOD: Blood Culture - RECD Initial ED EKG: normal sinus rhythm, rate (48, LEEANNE) Departure Departure Disposition: STILL A PATIENT Condition: Stable Clinical Impression Primary Impression: Bilateral pneumonia Secondary Impressions: Hypoxia, Influenza B Referrals: Katelin Washington APRN (PCP/Family) Departure Forms: Customer Survey General Discharge Information Admission Note Spoke With: Shamar Wesley MD Documentation of Exam: Documentation of any treatments & extenuating circumstances including Concerns Regarding Discharge (functional status, medication knowledge or non-compliance, living conditions, etc.) that warrant an admission rather than observation: Patient will require IV antibiotics. Supplemental oxygen. Pulmonary consultation. IV fluids. Patient's O2 saturation is 90% on room air. She feels increasingly short of breath. Medically not safe for discharge.
[2018-02-21 12:34] LABS: ABSOLUTE BASOPHIL COUNT 0 /CUMM (0.0-0.2); ABSOLUTE EOSINOPHIL COUNT 0 /CUMM (0.0-0.7); ABSOLUTE GRANULOCYTE CT 4.8 /CUMM (1.4-6.5); ABSOLUTE LYMPH COUNT 0.9 /CUMM (1.2-3.4); ABSOLUTE MONOCYTE COUNT 0.4 /CUMM (0.10-0.60); BASOPHIL % 0.7 % (0.0-2.0); EOSINOPHIL % 0 % (0-5); GRANULOCYTE % 77.5 % (42.2-75.2); HEMATOCRIT 34.2 % (37-47); MEAN CORPUSCULAR HGB 31.1 PG (27.0-31.0); MEAN CORPUSCULAR VOLUME 88.8 FL (81.0-99.0); MEAN PLATELET VOLUME 9.4 FL (7.4-10.4); PLATELET COUNT 195 /CUMM (130-400); RBC DISTRIBUTION WIDTH 13.6 % (11.5-14.5); RED BLOOD CELL CT 3.85 /CUMM (4.20-5.40); WHITE BLOOD CELL COUNT 6.1 /CUMM (4.8-10.8)
--- NOTE | 2018-02-21 13:48 | History & Physical ---
Ray DELGADO,Jose Daniel 02/21/18 8828: General Information and HPI MD Statement: I have seen and personally examined TERA MARSHALL and documented this H&P. The patient is a 38 year old F who presented with a patient stated chief complaint of []. History of Present Illness: The patient is a 38-year-old female with a PMH significant for anxiety with panic attacks, endometriosis, cholecystitis, endometriosis, questionable COPD diagnosis (patient cannot recall reason for albuterol use, is noncompliant), disc herniation of L4-L5, presents to the Hospital Yesterday Complaining of a Four-Day History of Cough,, Fever, Chills, Shortness of Breath. She Presented to the ED Yesterday and Left AGAINST MEDICAL ADVICE without Filling the Prescribed Antibiotics. She Returned Due To Worsening of Her Symptoms Today. She Has One Sick Contact, Her Niece Who Has Had a Cough Recently As Well. She took her temperature at home reporting that her MAXIMUM TEMPERATURE was 105.6, given some relief by Tylenol and cool baths. She initially thought that her cough was a "smoker's cough" however she began developing severe lateral chest pain with her cough 4 days ago. She is also having significant shortness of breath. She denies any anterior chest pain or chest discomfort, nausea, vomiting, diarrhea. Rest of review of systems as below. Allergies/Medications Allergies: Coded Allergies: tramadol (From ULTRAM) (Intermediate, "HIVES AND CONVULSIONS" 12/23/17) "HIVES AND CONVULSIONS" NSAIDS (Non-Steroidal Anti-Inflamma (HIVES 09/06/17) aspirin (HIVES 09/06/17) erythromycin base (HIVES 09/06/17) metoclopramide (HEADACHES 09/06/17) mirtazapine (From REMERON) (HEADACHES 09/06/17) paroxetine (HIVES 09/06/17) sertraline (HIVES 09/06/17) sumatriptan (From IMITREX) (ITCHY AND FOGGY 09/06/17) venom-honey bee (BEE VENOM (HONEY BEE)) (ANAPHYLAXIS 09/06/17) cyclobenzaprine (From FLEXERIL) (GROGGY 09/06/17) divalproex sodium (PERSONALITY CHANGE 09/06/17) gabapentin ("DOESN'T WORK" 09/06/17) Home Med list Alprazolam (Xanax) 2 MG TABLET 1 TAB PO Q6P PRN anxiety Carisoprodol (SOMA) 250 MG TABLET 1 TAB PO TID PRN muscle strain Cholecalciferol (Vitamin D3) (Vitamin D) 2,000 UNIT CAPSULE 1 TAB PO DAILY SUPPLEMENT (Reported) Estrogens, Conjugated (Premarin) 0.3 MG TABLET 0.3 MG PO DAILY HYSTERECTOMY ( Reported) Levothyroxine Sodium (Levoxyl) 75 MCG TABLET 1 TAB PO DAILY AC THYROID ( Reported) Quetiapine Fumarate 200 MG TABLET 3 TAB PO QPM MENTAL HEALTH/SLEEP (Reported) Past History Travel History Traveled to [place] past 21 day No Medical History Neurological: NONE EENT: tonsil infections Cardiovascular: HEART MURMUR Respiratory: COPD Gastrointestinal: BOWEL LOOPS Hepatic: cholecystitis Renal: NONE Musculoskeletal: TMJ Psychiatric: anxiety, insomnia, PANIC ATTACKS Endocrine: hypothyroidism Blood Disorders: NONE Cancer(s): NONE [employer] 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 EENTM: Reports: no symptoms. Cardiovascular: Reports: chest pain (associated with cough). Respiratory: Reports: cough, short of breath, sputum production. GI: Reports: no symptoms. Genitourinary: Reports: no symptoms. Musculoskeletal: Reports: no symptoms. Skin: Reports: no symptoms. Exam & Diagnostic Data Last 24 Hrs of Vital Signs/I&O Vital Signs Date Time Temp Pulse Resp B/P B/P Pulse O2 O2 Flow FiO2 Mean Ox Delivery Rate 02/21 1538 98.0 52 16 118/72 90 Room Air 02/21 1304 Nasal 2.0L Cannula 02/21 1155 97.6 54 17 109/57 92 Room Air Intake & Output 02/21 1600 02/21 0800 02/21 0000 Intake Total Output Total Balance Patient 187 lb Weight Weight Reported by Patient Measurement Method Physical Exam General Appearance Alert, Oriented X3, Cooperative, No Acute Distress Skin Temp/Moisture Exam: Warm/Dry Sepsis Skin Exam (color): Normal for Ethnicity Neck No thryomegaly Cardiovascular Regular Rate, Normal S1, Normal S2 Lungs diminished breath sounds, rhconchi Abdomen Normal Bowel Sounds, Soft, No Tenderness Neurological Normal Speech, Strength at 5/5 X4 Ext, Normal Tone, Sensation Intact, Cranial Nerves 3-12 NL Extremities No Clubbing, No Cyanosis, No Edema Sepsis Peripheral Pulse Location: Posterior Tibialis Sepsis Peripheral Pulse Exam: Normal Sepsis Cap Refill Exam: <2 Sec Last 24 Hrs of Labs/[place]: Laboratory Tests 02/21/18 1522: Lactic Acid 1.1 02/21/18 1227: Anion Gap 13, Estimated GFR > 60, BUN/Creatinine Ratio 22.9, Glucose 119 H, Lactic Acid 2.2 H, Calcium 9.1, Total Bilirubin 0.4, AST 23, ALT 25, Alkaline Phosphatase 39, Troponin I < 0.01, Total Protein 6.7, Albumin 3.6, Globulin 3.1, Albumin/Globulin Ratio 1.2, Total Beta HCG NEGATIVE, CBC w Diff NO MAN DIFF REQ, RBC 3.85 L, MCV 88.8, MCH 31.1 H, MCHC 35.0, RDW 13.6, MPV 9.4, Gran % 77.5 H , Lymphocytes % 14.7 L, Monocytes % 7.1, Eosinophils % 0, Basophils % 0.7, Absolute Granulocytes 4.8, Absolute Lymphocytes 0.9 L, Absolute Monocytes 0.4, Absolute Eosinophils 0, Absolute Basophils 0 Microbiology 02/21 1519 LOWER RESP: Respiratory Culture - ORD 02/21 1519 LOWER RESP: Gram Stain - ORD 02/21 1320 BLOOD: Blood Culture - RECD 02/21 1227 BLOOD: Blood Culture - RECD Diagnostic Data EKG Results sinus yaya, HR 48, inverted T waves III CXR Results FINDINGS: Interval development of patchy bibasilar and right upper lobar airspace disease is noted, may represent multilobar pneumonia. Follow-up chest radiograph to document resolution is recommended. The cardiomediastinal silhouette is within normal limits. There is no pleural effusion present. The visualized upper abdomen is unremarkable. IMPRESSION: Patchy airspace disease at both lower lobes and right upper lobe, may represent multilobar pneumonia. Assessment/Plan Assessment: The patient is a 38-year-old female with a PMH significant for anxiety with panic attacks, endometriosis, questionable COPD diagnosis (patient cannot recall reason for albuterol use, is noncompliant) cholecystitis, endometriosis, disc herniation of L4-L5, presents to the ED Yesterday Complaining of a Four-Day History of Cough, Fever, Chills, Shortness of Breath. CXR shows patchy airspace disease of the right upper lobe and bibasilar airspace disease, patient is fluid positive. Problem List #Multilobar pneumonia #Flu positive, influenza B #Chronic medical problems Plan -Admit to general medicine -Continue ceftriaxone and doxycycline -No need to treat influenza as patient is outside of the effective treatment window -Follow-up Sputum culture, blood cultures -TRC/nebs -Gentle IV fluid rehydration, patient admits to poor by mouth intake and appears dehydrated diet: regular diet DVT ppx: SC heparin, ALPS Code status: Full code As Ranked By This Provider Problem List: 1. Influenza B 2. Hypoxia 3. Bilateral pneumonia Core Measures/Misc (08/15) Acute Coronary Syndrome ACS Diagnosis: No Congestive Heart Failure Congestive Heart Failure Diagnosis No Cerebrovascular Accident CVA/TIA Diagnosis: No VTE (View Protocol) VTE Risk Factors Smoker No Mechanical VTE Prophylaxis d/t N/A MechProphylax Ordered No VTE Pharm Prophylaxis d/t NA PharmProphylax ordered Sepsis (View protocol) Sepsis Present: No Jena Fry MD 02/21/18 1445: Resident Review Statement Resident Statement: examined this patient, discussed with hospital intern, agreed with hospital intern, reviewed images, amended to note Other Findings: 38-year-old female with past medical history significant for depression and Polysubstance abuse with opiate and heroine, history of suicidal ideation but no intent, hypothyroisim and is S/P hysterectomy for endometriosis and PCOS who presents with complaints of 4 days of fever who presents with complaints of 4 days of fever up to 105.6, SOB, productive cough, and severe pleuritic chest pain. She is a current smoker and requests opiod pain medications for pain control. She was in the ED yesterday for the same complaints but left AMA. Influenza B positive CXR-Patchy airspace disease at both lower lobes and right upper lobe, may rep regular diet diet resent multilobar pneumonia Assessment 1. Influenza positive 2. Community Acquired Immunity Plan -Admit to general medicine floor -Continue IV doxycycline 100 mg twice a day. Patient is allergic to macrolides -TRC nebs -Trend lactate till normal -Patient is out of window for treatment and of flu; will treat symptomatically -Patient looks mildly dehydrated; Will give IV fluid normal saline at 100cc/hr 1 bag and reaccess -Pain control with p.o. and IV Tylenol; avoid opiate medications -Resume her important home medications -Patient is Full Code -SC lovenox for DVT ppx -Follow attending recommendations -Admit to general medicine floor -Continue IV doxycycline 100 mg twice a day. Patient is allergic to macrolides -TRC nebs -Trend lactate till normal -Patient is out of window for treatment and of flu; will treat symptomatically -Patient looks mildly dehydrated; Will give IV fluid normal saline at 100cc/hr 1 bag and reaccess -Pain control with p.o. and IV Tylenol; avoid opiate medications -Resume her important home medications -Patient is Full Code -SC lovenox for DVT ppx -Follow attending recommendations
[2018-02-21 15:38] VITALS: BP 118/72
--- NOTE | 2018-02-21 16:35 | Event Note ---
Event Note Event Note: S: Alerted by ER nurse the patient was demanding stronger pain meds B: Patient has a history of drug abuse and frequents the [facility] ED seeking pain medication AR: Patient was very frustrated with her lack of pain medication beyond IV Tylenol, I had a detailed discussion about our plan to treat her pneumonia and give her cough suppressants that should hopefully control the pain along with IV Tylenol. Expanded at this time based on the team's evaluation we are unwilling to escalate her analgesic medication. She stated that she was going to leave AMA. I explained the risks including worsening pneumonia, and possible should she did not seek treatment given her worsening symptoms. 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 She was able to reiterate her options including staying in receiving IV antibiotics, or leaving AGAINST MEDICAL ADVICE and risking worsening of her infection. She was able to articulate her choice in her rationale behind it and seemed to show good understanding of the risks that came along with this choice. I deemed that she had the capacity to make this decision and let her to sign out AMA. I also discussed this with my attending Dr. Hillman.
== END 2018-02-21 16:43 | disposition left against medical advice (07) ==
LOC: ERH 11:52 → CMPBEDREQ 02-22 10:47
PROVIDERS: Physician Assistant Medical
DX: J18.9 Pneumonia, unspecified organism (principal); J10.1 Influenza due to other identified influenza virus with other respiratory manifestations
CPT/HCPCS: 80307; 82436; 87040; 87070; 93005; 93010; 96374; 96375; J0696